=== PATIENT | female | born 1975 | race Caucasian/White ===

== ENCOUNTER 2021-04-19 10:02 | Emergency (ER) | payer OTHER ==
[2021-04-19 11:41] VITALS: TEMP 98.7; BMI 33.3
[2021-04-19] MEDS ORDERED: ALBUTEROL SO4 2.5/IPRATROPIUM 0.5 INH SOL 3 ML VIAL.NEB. NEB ONE ×2 (11:59→12:22)
[2021-04-19] MEDS ORDERED: ACETAMINOPHEN 1000 MG/100 ML VIAL IVPB ONE (12:37)
[2021-04-19] MEDS ORDERED: ACETAMINOPHEN INJECTION 100 ML IVPB ONE (12:40)
[2021-04-19 12:44] LABS: BASO % 0.6 % (0-2.0); EOS % 2.3 % (0-4.5); HEMATOCRIT 34.4 % (32.4-45.2); HEMOGLOBIN 11.2 GM/dL (10.7-15.3); LYMPH % 17.6 % (8-40); MCH 25.3 pg (25.7-33.7); MCHC 32.7 g/dl (32.0-36.0); MEAN CELL VOLUME 77.3 fl (80-96); MEAN PLT VOLUME 8.6 fl (7.5-11.1); MONO % 7.3 % (3.8-10.2); NEUT % 72.2 % (42.8-82.8); PLATELET COUNT 268 10^3/uL (134-434); RBC 4.44 M/mm3 (3.60-5.2); RDW 16.6 % (11.6-15.6); WHITE BLOOD COUNT 13.5 K/mm3 (4.0-10.0)
[2021-04-19 13:08] LABS: ALBUMIN 3.5 g/dl (3.4-5.0); BLOOD UREA NITROGEN 6.8 mg/dL (7-18); CALCIUM 9.4 mg/dL (8.5-10.1)
[2021-04-19 13:11] LABS: CREATININE 0.9 mg/dL (0.55-1.3)
[2021-04-19 13:13] LABS: BILIRUBIN,TOTAL 0.2 mg/dL (0.2-1); TOT PROT 7.6 g/dl (6.4-8.2)
[2021-04-19 16:11] VITALS: BP 137/82; PULSE 86
== END 2021-04-19 16:11 | disposition home or self-care (01) ==
LOC: JER 10:02
PROC: 3E033GC Introduction of Other Therapeutic Substance into Peripheral Vein, Percutaneous Approach (ICD-10-PCS; principal; 2021-04-19)
PROC: 3E0F7GC Introduction of Other Therapeutic Substance into Respiratory Tract, Via Natural or Artificial Opening (ICD-10-PCS; 2021-04-19)
DX: R05.9 Cough, unspecified (principal)
CPT/HCPCS: 36415; 71250-TC; 80053; 84484; 84703; 85025; 87804; 93005; 93010; 99285-25; C9803; J0131; U0003; U0005

== ENCOUNTER 2022-08-10 12:07 | Emergency (ER) | payer OTHER ==
[2022-08-10 12:52] VITALS: RESP 18; TEMP 98.2; BMI 44.2
[2022-08-10] MEDS ORDERED: ACETAMINOPHEN 1000 MG/100 ML BAG IVPB ONE (13:31)
[2022-08-10 14:30] LABS: BASO % 0.4 % (0-2.0); EOS % 0.3 % (0-4.5); HEMOGLOBIN 11.1 GM/dL (10.7-15.3); LYMPH % 13.2 % (8-40); MCH 23.6 pg (25.7-33.7); MCHC 31.6 g/dl (32.0-36.0); MEAN CELL VOLUME 74.6 fl (80-96); MONO % 7.4 % (3.8-10.2); NEUT % 78.7 % (42.8-82.8); PLATELET COUNT 274 10^3/uL (134-434); RBC 4.69 M/mm3 (3.60-5.2); RDW 18.3 % (11.6-15.6); WHITE BLOOD COUNT 10.1 K/mm3 (4.0-10.0)
[2022-08-10] MEDS ORDERED: ACETAMINOPHEN INJECTION 100 ML IVPB ONE (14:49)
[2022-08-10 14:52] LABS: INR 1.14 (0.83-1.09); PROTHROMBIN TIME (PATIENT) 13.2 SEC (9.7-13.0)
[2022-08-10 14:53] LABS: CALCIUM 9.5 mg/dL (8.5-10.1)
[2022-08-10 14:54] LABS: ALBUMIN 3.4 g/dl (3.4-5.0); BLOOD UREA NITROGEN 9.9 mg/dL (7-18); MAGNESIUM 2.1 mg/dL (1.8-2.4)
[2022-08-10 14:55] LABS: ACTIVATED PTT 30.7 SECONDS (25.2-36.5)
[2022-08-10 14:57] LABS: CREATININE 0.8 mg/dL (0.55-1.3)
[2022-08-10 14:59] LABS: BILIRUBIN,TOTAL 0.4 mg/dL (0.2-1); TOT PROT 7.3 g/dl (6.4-8.2)
[2022-08-10 15:03] LABS: N-TERMINAL BNP 127.9 pg/ml (5-125)
[2022-08-10] MEDS ORDERED: SILVER SULFADIAZINE 1% TOP CREAM 50 GM JAR TP ONE ×2 (15:30→17:05)
[2022-08-10] MEDS ORDERED: LIDOCAINE 5% TOPICAL PATCH TP ONE (17:01)
[2022-08-10] MEDS ORDERED: LIDOCAINE 5% TOPICAL PATCH ONE (17:05)
[2022-08-10 17:15] VITALS: BP 148/79; PULSE 63
[2022-08-10] MEDS ORDERED: LIDOCAINE PATCH REMOVAL MC SCH (22:00)
== END 2022-08-10 17:27 | disposition home or self-care (01) ==
LOC: JER 12:07
PROC: 3E033NZ Introduction of Analgesics, Hypnotics, Sedatives into Peripheral Vein, Percutaneous Approach (ICD-10-PCS; principal; 2022-08-10)
DX: R07.89 Other chest pain (principal); M54.6 Pain in thoracic spine
CPT/HCPCS: 36415; 71045-TC-FY; 71275-TC; 80053; 83735; 83880; 84484; 84703; 85025; 85379; 85610; 85730; 93005; 93010; 99285-25; Q9967

== ENCOUNTER 2023-04-22 12:36 | Emergency (ER) | payer OTHER ==
[2023-04-22 12:48] VITALS: BP 131/75; PULSE 83; RESP 18; TEMP 98.3; BMI 39.1
[2023-04-22] MEDS ORDERED: SODIUM CHLORIDE 0.9% 500 ML INFUS.BAG IV ONE (14:04)
[2023-04-22 14:29] LABS: BASO % 0.7 % (0-2.0); EOS % 0.9 % (0-4.5); LYMPH % 27.8 % (8-40); MCH 26.2 pg (25.7-33.7); MCHC 32.3 g/dl (32.0-36.0); MEAN CELL VOLUME 81.2 fl (80-96); MEAN PLT VOLUME 8.3 fl (7.5-11.1); MONO % 9.2 % (3.8-10.2); NEUT % 61.4 % (42.8-82.8); PLATELET COUNT 276 10^3/uL (134-434); RBC 4.56 M/mm3 (3.60-5.2); WHITE BLOOD COUNT 8.3 K/mm3 (4.0-10.0)
[2023-04-22 14:56] LABS: POTASSIUM 3.9 mmol/L (3.5-5.1)
[2023-04-22 14:58] LABS: BLOOD UREA NITROGEN 14.5 mg/dL (7-18); CALCIUM 9.4 mg/dL (8.5-10.1)
[2023-04-22 14:59] LABS: ALBUMIN 3.4 g/dl (3.4-5.0)
[2023-04-22 15:03] LABS: BILIRUBIN,TOTAL 0.3 mg/dL (0.2-1)
[2023-04-22 15:04] LABS: TOT PROT 7.4 g/dl (6.4-8.2)
[2023-04-22 15:23] LABS: INR 1.05 (0.83-1.09); PROTHROMBIN TIME (PATIENT) 12.2 SEC (9.7-13.0)
[2023-04-22 15:26] LABS: ACTIVATED PTT 29.4 SECONDS (25.2-36.5)
== END 2023-04-22 17:26 | disposition home or self-care (01) ==
LOC: JER 12:36
DX: N93.9 Abnormal uterine and vaginal bleeding, unspecified (principal); R53.83 Other fatigue; R53.1 Weakness; R42 Dizziness and giddiness; R07.9 Chest pain, unspecified; R00.2 Palpitations; R06.02 Shortness of breath
CPT/HCPCS: 36415; 80053; 84484; 85025; 85610; 85730; 86850; 86900; 86901; 99284-25

== ENCOUNTER 2023-11-15 22:17 | Emergency (ER) | payer OTHER ==
[2023-11-15 22:24] VITALS: BMI 37.7
[2023-11-15] MEDS ORDERED: ONDANSETRON 4 MG/2 ML VIAL ONE (23:36)
[2023-11-15] MEDS: SODIUM CHLORIDE 1,000 ML IV STA (23:40)
[2023-11-15] MEDS: ONDANSETRON 4 MG/2 ML VIAL IVPB ONE (23:40)
[2023-11-15 23:41] LABS: BASO % 0.4 % (0-2.0); EOS % 0.5 % (0-4.5); HEMATOCRIT 32.4 % (32.4-45.2); HEMOGLOBIN 10.4 GM/dL (10.7-15.3); LYMPH % 21.2 % (8-40); MCH 24.9 pg (25.7-33.7); MCHC 32.2 g/dl (32.0-36.0); MEAN CELL VOLUME 77.5 fl (80-96); MEAN PLT VOLUME 7.8 fl (7.5-11.1); MONO % 6.4 % (3.8-10.2); NEUT % 71.5 % (42.8-82.8); PLATELET COUNT 283 10^3/uL (134-434); RBC 4.18 M/mm3 (3.60-5.2); RDW 18.4 % (11.6-15.6)
[2023-11-15 23:48] LABS: INR 1.02 (0.83-1.09); PROTHROMBIN TIME (PATIENT) 11.7 SEC (9.7-13.0)
[2023-11-15 23:51] LABS: ACTIVATED PTT 28.5 SECONDS (25.2-36.5)
[2023-11-16 00:08] LABS: POTASSIUM 4.5 mmol/L (3.5-5.1)
[2023-11-16 00:10] LABS: CALCIUM 9.1 mg/dL (8.5-10.1)
[2023-11-16 00:11] LABS: ALBUMIN 3.2 g/dl (3.4-5.0); BLOOD UREA NITROGEN 7.8 mg/dL (7-18); MAGNESIUM 2.3 mg/dL (1.8-2.4)
[2023-11-16 00:14] LABS: CREATININE 0.8 mg/dL (0.55-1.3)
[2023-11-16 00:15] LABS: TOT PROT 6.8 g/dl (6.4-8.2)
[2023-11-16 00:16] LABS: BILIRUBIN,TOTAL 0.3 mg/dL (0.2-1)
[2023-11-16 04:23] VITALS: BP 132/78; PULSE 60; RESP 17; TEMP 97.8
== END 2023-11-16 05:04 | disposition home or self-care (01) ==
LOC: JER 22:17
PROC: 3E033GC Introduction of Other Therapeutic Substance into Peripheral Vein, Percutaneous Approach (ICD-10-PCS; principal; 2023-11-15)
PROC: 3E0337Z Introduction of Electrolytic and Water Balance Substance into Peripheral Vein, Percutaneous Approach (ICD-10-PCS; 2023-11-15)
DX: R07.9 Chest pain, unspecified (principal); R11.2 Nausea with vomiting, unspecified; R56.9 Unspecified convulsions
CPT/HCPCS: 36415; 71045-TC-FY; 71046-TC-FY; 80053; 82550; 83735; 84484; 85025; 85610; 85730; 93005; 93010; 99285-25

== ENCOUNTER 2024-06-22 13:29 | Observation (INO) | payer OTHER ==
[2024-06-22 13:41] VITALS: BMI 36.6
[2024-06-22] MEDS ORDERED: METOCLOPRAMIDE HCL INJECTION 10 MG/2 ML VIAL ONE (14:36)
[2024-06-22] MEDS ORDERED: ONDANSETRON 4 MG/2 ML VIAL ONE (14:37)
[2024-06-22] MEDS ORDERED: ACETAMINOPHEN INJECTION 100 ML ONE ×2 (14:37→21:22)
[2024-06-22 14:44] LABS: BASO % 0.2 % (0-2.0); EOS % 0.4 % (0-4.5); HEMOGLOBIN 10.9 GM/dL (10.7-15.3); LYMPH % 21.1 % (8-40); MCH 24.5 pg (25.7-33.7); MCHC 31.9 g/dl (32.0-36.0); MEAN CELL VOLUME 76.8 fl (80-96); MEAN PLT VOLUME 7.4 fl (7.5-11.1); MONO % 10.1 % (3.8-10.2); NEUT % 68.2 % (42.8-82.8); PLATELET COUNT 361 10^3/uL (134-434); RBC 4.43 M/mm3 (3.60-5.2); RDW 18.6 % (11.6-15.6); WHITE BLOOD COUNT 9.3 K/mm3 (4.0-10.0)
[2024-06-22] MEDS: SODIUM CHLORIDE 0.9% 500 ML INFUS.BAG IV ONE ×2 (14:48→21:29)
[2024-06-22] MEDS: ACETAMINOPHEN 1000 MG/100 ML BAG IVPB ONE ×2 (14:49→21:29)
[2024-06-22] MEDS: METOCLOPRAMIDE HCL INJECTION 10 MG/2 ML VIAL IVPB ONE (14:49)
[2024-06-22] MEDS: ONDANSETRON 4 MG/2 ML VIAL IVPB ONE (14:49)
[2024-06-22 15:05] LABS: POTASSIUM 3.9 mmol/L (3.5-5.1)
[2024-06-22 15:07] LABS: ALBUMIN 3.4 g/dl (3.4-5.0); BLOOD UREA NITROGEN 15.7 mg/dL (7-18); CALCIUM 9.7 mg/dL (8.5-10.1); MAGNESIUM 1.9 mg/dL (1.8-2.4)
[2024-06-22 15:11] LABS: CREATININE 0.9 mg/dL (0.55-1.3)
[2024-06-22 15:12] LABS: BILIRUBIN,TOTAL 0.4 mg/dL (0.2-1); TOT PROT 7.2 g/dl (6.4-8.2)
[2024-06-22 15:17] LABS: INR 0.92 (0.83-1.09); PROTHROMBIN TIME (PATIENT) 10.4 SEC (9.7-13.0)
[2024-06-22 15:19] LABS: ACTIVATED PTT 26.7 SECONDS (25.2-36.5)
[2024-06-22 16:00] LABS: HIV INTERPRETATION NEGATIVE (NEGATIVE)
[2024-06-22] MEDS ORDERED: MAGNESIUM SULFATE IN WATER 2 GM/50 ML IVPB IVPB ONE (17:09)
[2024-06-22] MEDS: MAGNESIUM SULFATE IN WATER 2 GM/50 ML IVPB IVPB ONE (17:14)
[2024-06-22] MEDS ORDERED: LIDOCAINE HCL 1%, 10 MG/ML (20ML VIAL) ONE (23:16)
[2024-06-22] MEDS ORDERED: LIDOCAINE 1%/EPI 1:100000 (20 ML MULTI DOSE VIAL) ONE (23:54)
[2024-06-23] MEDS ORDERED: HYDROCHLOROTHIAZIDE 25 MG TABLET (FP) ONE ×2 (00:54→10:11)
[2024-06-23] MEDS: HYDROCHLOROTHIAZIDE 25 MG TABLET (FP) PO ONE (00:55)
[2024-06-23] MEDS ORDERED: dilTIAZem HCL 60 MG TABLET ONE (02:11)
[2024-06-23] MEDS ORDERED: VALSARTAN 80 MG TABLET ONE (02:11)
[2024-06-23] MEDS: VALSARTAN 40 MG TABLET PO ONE (02:40)
[2024-06-23] MEDS: dilTIAZem HCL 60 MG TABLET PO ONE (02:40)
[2024-06-23] MEDS ORDERED: oxyCODONE HCL 5 MG TABLET PO ONE (03:39)
[2024-06-23] MEDS ORDERED: DOCUSATE SODIUM 100 MG CAPSULE (FP) PO PRN (03:49)
[2024-06-23] MEDS: METOCLOPRAMIDE HCL INJECTION 10 MG/2 ML VIAL IVPUSH PRN (05:34)
[2024-06-23] MEDS ORDERED: ALBUTEROL SO4 HFA INHALER IH PRN (08:05)
[2024-06-23] MEDS ORDERED: KETOROLAC TROMETHAMINE 15 MG/ML VIAL ONE ×2 (09:46→18:06)
[2024-06-23] MEDS ORDERED: CYCLOBENZAPRINE HCL 5 MG TABLET ONE (09:46)
[2024-06-23] MEDS ORDERED: levETIRAcetam 500 MG TABLET (FP) PO ONE (10:11)
[2024-06-23] MEDS: TAMOXIFEN CITRATE 10 MG TABLET PO SCH (10:45)
[2024-06-23] MEDS: levETIRAcetam 500 MG TABLET (FP) PO SCH (10:48)
[2024-06-23] MEDS: KETOROLAC TROMETHAMINE 15 MG/ML VIAL IVPUSH PRN (10:50)
[2024-06-23] MEDS: HYDROCHLOROTHIAZIDE 25 MG TABLET (FP) PO SCH (10:50)
[2024-06-23] MEDS: CYCLOBENZAPRINE HCL 5 MG TABLET PO SCH (10:50)
[2024-06-23] MEDS ORDERED: ONDANSETRON *ODT* 4 MG TABLET SL PRN (13:04)
[2024-06-23] MEDS ORDERED: AMOX TR/POT CLAV 875MG/125MG TABLETS (FP) ONE ×3 (14:37→18:06)
[2024-06-23] MEDS ORDERED: TOPIRAMATE 25 MG TABLET ONE (14:38)
[2024-06-23] MEDS: TOPIRAMATE 25 MG TABLET PO SCH (14:44)
[2024-06-23] MEDS: AMOX TR/POT CLAV 875MG/125MG TABLETS (FP) PO SCH (14:56)
[2024-06-23] MEDS: levETIRAcetam 250 MG TABLET PO SCH (21:17)
[2024-06-23] MEDS: ACETAMINOPHEN 325 MG TABLET (FP) PO PRN (21:19)
[2024-06-23] MEDS ORDERED: levETIRAcetam 250 MG TABLET PO SCH (22:00)
[2024-06-24] MEDS ORDERED: DOCUSATE SODIUM 100 MG CAPSULE (FP) PO PRN (06:58)
[2024-06-24] MEDS ORDERED: ALBUTEROL SO4 HFA INHALER IH PRN (06:58)
[2024-06-24] MEDS: AMOX TR/POT CLAV 875MG/125MG TABLETS (FP) PO SCH (09:23)
[2024-06-24] MEDS: TOPIRAMATE 25 MG TABLET PO SCH ×2 (09:23→21:26)
[2024-06-24] MEDS: HYDROCHLOROTHIAZIDE 25 MG TABLET (FP) PO SCH (09:23)
[2024-06-24] MEDS: CYCLOBENZAPRINE HCL 5 MG TABLET PO SCH (09:24)
[2024-06-24] MEDS: levETIRAcetam 250 MG TABLET PO SCH (09:24)
[2024-06-24] MEDS: TAMOXIFEN CITRATE 10 MG TABLET PO SCH (09:24)
[2024-06-24] MEDS: KETOROLAC TROMETHAMINE 15 MG/ML VIAL IVPUSH PRN (09:25)
[2024-06-24] MEDS: ONDANSETRON *ODT* 4 MG TABLET SL PRN (10:02)
[2024-06-24 10:24] LABS: BASO % 0.5 % (0-2.0); EOS % 0.7 % (0-4.5); HEMATOCRIT 36.8 % (32.4-45.2); HEMOGLOBIN 11.4 GM/dL (10.7-15.3); LYMPH % 24.9 % (8-40); MCH 24.1 pg (25.7-33.7); MCHC 31.1 g/dl (32.0-36.0); MEAN CELL VOLUME 77.6 fl (80-96); MONO % 11.5 % (3.8-10.2); NEUT % 62.4 % (42.8-82.8); PLATELET COUNT 375 10^3/uL (134-434); RBC 4.74 M/mm3 (3.60-5.2); RDW 18.4 % (11.6-15.6); WHITE BLOOD COUNT 6.7 K/mm3 (4.0-10.0)
[2024-06-24 10:49] LABS: POTASSIUM 3.7 mmol/L (3.5-5.1)
[2024-06-24 10:53] LABS: CALCIUM 10.2 mg/dL (8.5-10.1)
[2024-06-24 10:56] LABS: CREATININE 0.9 mg/dL (0.55-1.3)
[2024-06-24] MEDS: ACETAMINOPHEN 325 MG TABLET (FP) PO PRN (12:36)
[2024-06-24] MEDS: methylPREDNISolone NA SUCC 125 MG/2 ML VIAL IVPB SCH (14:58)
[2024-06-24] MEDS: FAMOTIDINE 20 MG TABLET PO SCH (14:58)
[2024-06-24] MEDS: ACETAMINOPHEN 1000 MG/100 ML BAG IVPB ONE (19:49)
[2024-06-25] MEDS ORDERED: ACETAMINOPHEN 1000 MG/100 ML BAG IVPB PRN (01:17)
[2024-06-25] MEDS: ACETAMINOPHEN 1000 MG/100 ML BAG IVPB PRN (01:32)
[2024-06-25 01:37] VITALS: RESP 18; TEMP 97.9
[2024-06-25 06:37] VITALS: BP 140/88; PULSE 63
[2024-06-25] MEDS: TOPIRAMATE 25 MG TABLET PO SCH (09:40)
[2024-06-25] MEDS: predniSONE 20 MG TABLET (UD) PO SCH (09:41)
[2024-06-25 09:59] LABS: BASO % 0.2 % (0-2.0); HEMATOCRIT 37.4 % (32.4-45.2); HEMOGLOBIN 11.8 GM/dL (10.7-15.3); LYMPH % 17.2 % (8-40); MCH 24.6 pg (25.7-33.7); MCHC 31.5 g/dl (32.0-36.0); MEAN CELL VOLUME 77.9 fl (80-96); MEAN PLT VOLUME 7.8 fl (7.5-11.1); MONO % 8.2 % (3.8-10.2); NEUT % 74.4 % (42.8-82.8); PLATELET COUNT 384 10^3/uL (134-434); RBC 4.81 M/mm3 (3.60-5.2); RDW 18.4 % (11.6-15.6); WHITE BLOOD COUNT 8.2 K/mm3 (4.0-10.0)
[2024-06-25] MEDS: SUMAtriptan SUCCINATE 50 MG TABLET PO SCH (11:33)
[2024-06-25 12:45] LABS: ALBUMIN 3.6 g/dl (3.4-5.0); BILIRUBIN,TOTAL 0.4 mg/dL (0.2-1); BLOOD UREA NITROGEN 17.1 mg/dL (7-18); CALCIUM 10.5 mg/dL (8.5-10.1); TOT PROT 7.6 g/dl (6.4-8.2)
== END 2024-06-25 14:06 | disposition home or self-care (01) ==
LOC: JER 13:29 → JERBED 06-23 02:44 → J8W 06-23 19:59
PROVIDERS: ADMIT Internal Medicine; ATTEND Nurse Practitioner Acute Care
PROC: 3E033NZ Introduction of Analgesics, Hypnotics, Sedatives into Peripheral Vein, Percutaneous Approach (ICD-10-PCS; principal; 2024-06-23)
PROC: 3E0333Z Introduction of Anti-inflammatory into Peripheral Vein, Percutaneous Approach (ICD-10-PCS; 2024-06-23)
PROC: 3E0337Z Introduction of Electrolytic and Water Balance Substance into Peripheral Vein, Percutaneous Approach (ICD-10-PCS; 2024-06-23)
DX: L03.213 Periorbital cellulitis (principal); E66.9 Obesity, unspecified; I10 Essential (primary) hypertension; R56.9 Unspecified convulsions; R51.9 Headache, unspecified; Z85.3 Personal history of malignant neoplasm of breast; F17.200 Nicotine dependence, unspecified, uncomplicated
CPT/HCPCS: 36415; 70450-TC; 70496-TC; 70553-TC; 71045-TC-FY; 80048; 80053; 83735; 84484; 84703; 85025; 85610; 85651; 85730; 86140; 86803; 87389; 93005; 93010; 99285-25; G0378; J0131; Q0162; Q9967